=== PATIENT | male | born 1995 | race Caucasian/White ===

== ENCOUNTER 2022-08-27 07:11 | Outpatient (CLI) | payer BC, SELFPAY ==
--- NOTE | 2022-08-27 07:15 | CRLHL7_ITS ---
For Patients: As a result of the Century Cures Act, medical imaging exams and procedure reports are released immediately into your electronic medical record. You may view this report before your referring provider. If you have questions, please contact your health care provider. INDICATION: Epididymitis. Right scrotal lump. COMPARISON: None. TECHNIQUE: Reese scale imaging was performed of the scrotum. In addition color Doppler and spectral Doppler analysis was performed of the testes. FINDINGS: The testes demonstrate normal arterial and venous blood flow on color Doppler and spectral Doppler analysis. The testes have uniform echogenicity with no evidence of a suspicious mass or area of inflammation. The right testis measures 5.5 x 2.0 x 3.5 cm in size and the left testis measures 5.2 x 2.0 x 3.3 cm. The epididymis appears normal bilaterally. There is no evidence of a hydrocele or varicocele. Incidental note is made of a 1.2 x 0.9 x 1.0 cm well-circumscribed cyst within the lateral right mid hemiscrotum (tunica albuginea). IMPRESSION: Normal testicles and epididymi. Well-circumscribed cyst lateral mid right tunica albuginea. Dictated by Wily Ybarra MD @ 08/27/2022 9:08:16 AM (Electronically Signed)
== END 2022-08-27 07:12 | disposition home or self-care (01) ==
LOC: US 07:12
PROVIDERS: PCP Family Medicine; Visit Provider Family Medicine
DX: N45.1 Epididymitis (principal); N44.1 Cyst of tunica albuginea testis
CPT/HCPCS: 76870; 93976